=== PATIENT | female | born 1955 | race Caucasian/White ===

== ENCOUNTER 2024-04-29 11:18 | Emergency (ER) | payer OTHER ==
[~2024-04-29] VITALS: Ht 152.4 cm; Wt 107.5 kg
[~2024-04-29 11:18] MED LIST: APIX5TAB PO; ATOR10TA PO; CEPH250C16 PO; DIGO-119 PO; METF-350 PO; METO25TA PO; TRAM-748 PO
[2024-04-29 11:25] VITALS: PULSE 70; RESP 18; TEMP 98.6; O2SAT 94
[2024-04-29 11:40] VITALS: O2SAT 98
[2024-04-29 12:10] LABS: BASOPHILS # (AUTO) 0.1 K/uL (0.00-0.22); BASOPHILS % (AUTO) 0.9 % (0.0-2.0); EOSINOPHILS # (AUTO) 0.4 K/uL (0-0.4); EOSINOPHILS % (AUTO) 5.4 % (0.0-4.0); HEMATOCRIT 41.6 % (36-48); HEMOGLOBIN 13.8 g/dL (12.0-16.0); LYMPHOCYTES # (AUTO) 1.4 K/uL (2.5-16.5); LYMPHOCYTES % (AUTO) 20.8 % (20.5-51.1); MEAN CORPUSCULAR HEMOGLOBIN 29 pg (27-31); MEAN CORPUSCULAR HGB CONC 33 g/dL (33-37); MEAN CORPUSCULAR VOLUME 87.1 fL (80-94); MONOCYTES # (AUTO) 0.6 K/uL (0.8-1.0); MONOCYTES % (AUTO) 8.6 % (1.7-9.3); NEUTROPHILS # (AUTO) 4.4 K/uL (1.8-7.7); NEUTROPHILS % (AUTO) 64.3 % (42.2-75.2); PLATELET COUNT (AUTO) 315 K/uL (140-450); RED BLOOD CELL COUNT(AUTO) 4.78 MIL/uL (4.20-5.40); RED CELL DISTRIBUTION WIDTH 13.7 % (11.6-13.7); WHITE BLOOD COUNT (AUTO) 6.9 K/uL (4.8-10.8)
[2024-04-29] MEDS: fentaNYL citrate 0.05 MG/ML VIAL IVP ONE ×3 (12:15→18:51)
[2024-04-29 12:19] LABS: ANION GAP 10.2 (8-16); CALCIUM 8.2 mg/dL (8.5-10.1); CARBON DIOXIDE 27.5 mmol/L (21-32); CREATININE 0.7 mg/dL (0.6-1.3); POTASSIUM 3.7 mmol/L (3.5-5.1)
[2024-04-29 14:04] VITALS: O2SAT 97
[2024-04-29 16:35] VITALS: O2SAT 97
[2024-04-29] MEDS ORDERED: ACET-9525 PO ×2 (18:09→18:49)
[2024-04-29 18:45] VITALS: BP 149/126; PULSE 68; RESP 14; TEMP 98.6; O2SAT 96
== END 2024-04-29 19:40 | disposition home or self-care (01) ==
LOC: MED 11:18
DX: S42.331A Displaced oblique fracture of shaft of humerus, right arm, initial encounter for closed fracture (principal); E11.9 Type 2 diabetes mellitus without complications; I10 Essential (primary) hypertension; I48.91 Unspecified atrial fibrillation; Z79.1 Long term (current) use of non-steroidal anti-inflammatories (NSAID); Z79.2 Long term (current) use of antibiotics; Z79.84 Long term (current) use of oral hypoglycemic drugs; Z79.01 Long term (current) use of anticoagulants; Z79.899 Other long term (current) drug therapy; Z88.1 Allergy status to other antibiotic agents; W18.39XA Other fall on same level, initial encounter; Y93.89 Activity, other specified; Y92.89 Other specified places as the place of occurrence of the external cause; Y99.8 Other external cause status
CPT/HCPCS: 29105; 36415; 70450; 73030; 73060; 73070; 80048; 82948; 85025; 96374; 96376; 99285; J3010